=== PATIENT | female | born 1975 | race African-American/Black ===

== ENCOUNTER 2018-11-13 20:30 | Emergency (ER) | payer SELFPAY ==
[~2018-11-13] VITALS: Ht 177.8 cm; Wt 91.0 kg
[2018-11-13 21:54] LABS: CLARITY URINE CLEAR (CLEAR); COLOR URINE YELLOW (YELLOW); KETONES URINE TRACE (NEGATIVE); LEUKOCYTE ESTERASE URINE NEGATIVE (NEGATIVE); NITRITE URINE NEGATIVE (NEGATIVE); OCCULT BLOOD URINE NEGATIVE (NEGATIVE); PH URINE 5.5 (4.5-8.0); PROTEIN URINE NEGATIVE (NEGATIVE)
[2018-11-14 02:46] VITALS: BP 131/71
== END 2018-11-14 03:30 | disposition home or self-care (01) ==
LOC: ER 20:30
DX: L03.115 Cellulitis of right lower limb (principal); Z87.891 Personal history of nicotine dependence
CPT/HCPCS: 81025; 99283

== ENCOUNTER 2018-11-18 05:11 | Emergency (ER) | payer SELFPAY ==
[~2018-11-18] VITALS: Ht 177.8 cm; Wt 91.0 kg
[2018-11-18 05:17] VITALS: BP 155/77
== END 2018-11-18 08:28 | disposition left against medical advice (07) ==
LOC: ER 05:57
DX: Z53.21 Procedure and treatment not carried out due to patient leaving prior to being seen by health care provider (principal)

== ENCOUNTER 2018-11-18 15:54 | Emergency (ER) | payer SELFPAY ==
[~2018-11-18] VITALS: Ht 157.5 cm; Wt 91.0 kg
[2018-11-18 16:00] VITALS: BP 135/68
== END 2018-11-18 20:30 | disposition left against medical advice (07) ==
LOC: ER 17:50
DX: Z53.21 Procedure and treatment not carried out due to patient leaving prior to being seen by health care provider (principal)

== ENCOUNTER 2018-11-19 03:39 | Emergency (ER) | payer SELFPAY ==
[~2018-11-19] VITALS: Ht 177.8 cm; Wt 91.0 kg
== END 2018-11-19 11:35 | disposition left against medical advice (07) ==
LOC: ER 03:39
DX: Z53.21 Procedure and treatment not carried out due to patient leaving prior to being seen by health care provider (principal)

== ENCOUNTER 2018-11-19 19:41 | Emergency (ER) | payer SELFPAY ==
[~2018-11-19] VITALS: Ht 177.8 cm; Wt 91.0 kg
[2018-11-20 01:30] LABS: CHLORIDE 105 mEq/L (98-107)
[2018-11-20 02:02] VITALS: BP 148/60
== END 2018-11-20 02:08 | disposition home or self-care (01) ==
LOC: ER 19:41
DX: I83.12 Varicose veins of left lower extremity with inflammation (principal); I83.219 Varicose veins of right lower extremity with both ulcer of unspecified site and inflammation; R60.0 Localized edema; L03.116 Cellulitis of left lower limb; L03.115 Cellulitis of right lower limb
CPT/HCPCS: 36415; 81025; 83880; 99283

== ENCOUNTER 2018-11-28 07:47 | Emergency (ER) | payer SELFPAY ==
[~2018-11-28] VITALS: Ht 177.8 cm; Wt 91.0 kg
[2018-11-28 10:28] VITALS: BP 129/74
== END 2018-11-28 10:28 | disposition home or self-care (01) ==
LOC: ER 08:12
DX: R60.0 Localized edema (principal); Z48.00 Encounter for change or removal of nonsurgical wound dressing
CPT/HCPCS: 81025; 99282

== ENCOUNTER 2019-05-01 23:20 | Emergency (ER) | payer MEDICAID ==
[~2019-05-01] VITALS: Ht 177.8 cm; Wt 91.0 kg
[2019-05-02] MEDS ORDERED: IBUPROFEN 600MG TABLET PO ONE (02:45)
[2019-05-02 03:20] VITALS: BP 144/72
== END 2019-05-02 03:23 | disposition home or self-care (01) ==
LOC: ER 23:20
DX: M54.5 Low back pain (principal); G89.29 Other chronic pain; F17.200 Nicotine dependence, unspecified, uncomplicated; Z98.890 Other specified postprocedural states
CPT/HCPCS: 99283; A4217

== ENCOUNTER 2019-05-03 00:24 | Emergency (ER) | payer MEDICAID ==
[~2019-05-03] VITALS: Ht 177.8 cm; Wt 84.5 kg
[2019-05-03] MEDS ORDERED: IBUPROFEN 600MG TABLET PO ONE (03:30)
[2019-05-03 04:44] LABS: CLARITY URINE TURBID (CLEAR); COLOR URINE YELLOW (YELLOW); KETONES URINE 1+ (NEGATIVE); LEUKOCYTE ESTERASE URINE TRACE (NEGATIVE); NITRITE URINE NEGATIVE (NEGATIVE); OCCULT BLOOD URINE 3+ (NEGATIVE); PH URINE 5.5 (4.5-8.0); PROTEIN URINE 1+ (NEGATIVE); SPECIFIC GRAVITY URINE 1.028 (1.005-1.030)
[2019-05-03 05:50] VITALS: BP 122/71
== END 2019-05-03 05:53 | disposition home or self-care (01) ==
LOC: ER 01:29
DX: M54.5 Low back pain (principal); G89.29 Other chronic pain; N39.0 Urinary tract infection, site not specified; F17.210 Nicotine dependence, cigarettes, uncomplicated
CPT/HCPCS: 72100; 81003; 81025; 99284; Z7610

== ENCOUNTER 2023-01-27 11:52 | Emergency (ER) | payer MEDICAID ==
[~2023-01-27] VITALS: Ht 177.8 cm; Wt 89.0 kg
[2023-01-27 12:18] VITALS: BP 124/73
[2023-01-27] MEDS ORDERED: ACETAMINOPHEN 325MG TABLET PO ONE (13:30)
== END 2023-01-27 14:41 | disposition left against medical advice (07) ==
LOC: ER 11:52
DX: Z53.21 Procedure and treatment not carried out due to patient leaving prior to being seen by health care provider (principal)
CPT/HCPCS: 99281